=== PATIENT | male | born 1955 | race Caucasian/White ===

== ENCOUNTER 2017-02-21 10:11 | Day surgery (SDC) | payer MEDICARE ==
--- NOTE | ~2017-02-21 | EGD ---
EGD REPORT [facility] [address] [id number] NAME: FRANCI CALDERON JR : 55 STATUS : REG [facility]#: [id number] AGE: 61 ADM/REG DATE : 02/21/17 MR#: [id number] REPORT SERV DATE: 02/21/17 DICTATED BY: PERCY DUBON III DATE: 02/21/17 REPORT STATUS : Draft [facility] DATE: 02/21/17 Endoscopy Center Patient Name: Franci Calderon Jr Date of : 1955 Attending MD: PERCY DUBON III, MD Procedure Date No Time: 02/21/2017 Procedure: Upper GI endoscopy Indications: Epigastric abdominal pain Referring MD: SASHA PENNINGTON Medicines: Propofol per Anesthesia Complications: No immediate complications. Procedure: Pre-Anesthesia Assessment: - ASA Grade Assessment: IV - A patient with severe systemic disease that is a constant threat to life. After obtaining informed consent, the endoscope was passed under direct vision. Throughout the procedure, the patient's blood pressure, pulse, and oxygen saturations were monitored continuously. The GIF [id number] was introduced through the mouth, and advanced to the third part of duodenum. The upper GI endoscopy was accomplished with ease. The patient tolerated the procedure well. Findings: The examined esophagus was normal. There is no endoscopic evidence of varices in the lower third of the esophagus. The Z-line was irregular and was found at the gastroesophageal junction. A small hiatus hernia was present. There is no endoscopic evidence of varices in the gastric fundus. The examined duodenum was normal. A small diverticulum was found in the gastric fundus. Impression: - Normal esophagus. - Z-line irregular, at the gastroesophageal junction. - Hiatus hernia. - Normal examined duodenum. Recommendation: - Patient has a contact number available for emergencies. The signs and symptoms of potential delayed complications were discussed with the patient. Return to normal activities tomorrow. Written discharge instructions were provided to the patient. - Discharge patient to home. - Return to previous diet. EGD REPORT [address] [address] NAME: FRANCI CALDERON JR : 55 STATUS : REG [facility]#: [id number] AGE: 61 ADM/REG DATE : 02/21/17 MR#: [id number] REPORT SERV DATE: 02/21/17 DICTATED BY: PERCY DUBON III DATE: 02/21/17 REPORT STATUS : Draft TRANSCRIBED BY: WEISSENHAUS DATE: 02/21/17 - Continue present medications. Procedure Code(s): --- Professional --- 31600, Esophagogastroduodenoscopy, flexible, transoral; diagnostic, including collection of specimen(s) by brushing or washing, when performed (separate procedure) Diagnosis Code(s): --- Professional --- K22.8, Other specified diseases of esophagus K44.9, Diaphragmatic hernia without obstruction or gangrene R10.13, Epigastric pain CPT copyright 2013 [employer]. All rights reserved. The codes documented in this report are preliminary and upon power press supervisor review may be revised to meet current compliance requirements. PERCY DUBON III, MD 02/21/2017 12:20 PM This report has been signed electronically. Number of Addenda: 0 Note Initiated On: 02/21/2017 11:52 AM Scope Withdrawal Time 0 hours 0 minutes 0 seconds [id number] [place] [id number]
[~2017-02-21 10:11] MED LIST: CELEXA40 MG PO; LEVOTHYROXIN50 MCG PO; METHOC500B PO; MOTRIN IB200 MG PO; MSCONT60 PO; MSCONTIN PO; OXYCONTIN15 MG PO; PROTONIX PO; TRAZ50 PO
== END 2017-02-21 23:59 | disposition home health service (06) ==
LOC: DMU 10:11
PROVIDERS: Internal Medicine Gastroenterology
PROC: 0DJ08ZZ Inspection of Upper Intestinal Tract, Via Natural or Artificial Opening Endoscopic (ICD-10-PCS; principal; 2017-02-21 12:30)
DX: K44.9 Diaphragmatic hernia without obstruction or gangrene (principal); K22.8 Other specified diseases of esophagus; M19.90 Unspecified osteoarthritis, unspecified site; K74.60 Unspecified cirrhosis of liver; F17.200 Nicotine dependence, unspecified, uncomplicated; K21.9 Gastro-esophageal reflux disease without esophagitis; E03.9 Hypothyroidism, unspecified; Z98.890 Other specified postprocedural states
CPT/HCPCS: J1170